=== PATIENT | male | born 1945 | race Caucasian/White ===

== ENCOUNTER 2024-09-27 09:50 | Outpatient (REF) | payer OTHER, SELFPAY ==
[2024-09-27 14:38] LABS: Appearance Urine Clear; Color Urine Yellow; Glucose Urine UA Negative (Negative); Leukocyte Esterase Urine Moderate (2+) (Negative); Nitrite Urine Negative (Negative); PH 6.5 (5.0-9.0); UMIC TRIGGER UA YES; Urine Blood Negative (Negative); Urine Ketones Negative (Negative); Urine Protein Negative (Neg-Trace)
[2024-09-27 14:41] LABS: Bacteria Urine 4+ (None Seen); Hyaline Casts Urine 0-2 /LPF (0-2); RBC Urine 0-2 /HPF (0-2); Squamous Epithelial Cell Urine 0-2 /HPF (0-2); WBC Urine 21-50 /HPF (0-5)
[2024-09-27 21:41] LABS: Creatinine Urine 73.66 mg/dL; Microalbumin Urine < 5.0 mg/L
== END 2024-09-27 09:51 | disposition home or self-care (01) ==
LOC: HO.LAB 09:50
PROVIDERS: PCP Family Medicine; Visit Provider Family Medicine
DX: Z00.00 Encounter for general adult medical examination without abnormal findings (principal); R30.0 Dysuria; R01.1 Cardiac murmur, unspecified; I10 Essential (primary) hypertension
CPT/HCPCS: 81001; 82570; 87086; 87088; 87186; 96127

== ENCOUNTER 2024-09-27 09:50 | Outpatient (AMB) | payer OTHER, SELFPAY ==
--- NOTE | 2024-09-27 10:04 | MHC.PC.OV ---
Vital Signs 09/27/24 10:14 Height 5 ft 5 in Weight 136 lb 4 oz BMI 22.7 BP 130/80 Blood Pressure Location Lt brachial Position Sitting Respiration 14 Pulse 78 Pulse Source Pulse Oximeter Temp 97.5 F Temp Source Oral Pulse Oximetry (%) 93 Oxygen Delivery Method Room Air Intake Visit Reasons: C[employer] P[employer]AT establish care - see comments Intake Note: patient is scheduled to establish care with pcp. patient states he is having burning sensation while urinating Photo Mask Cleaner Required: No Allergies azithromycin Allergy (Intermediate, Verified 09/27/24 10:09) Hives Medication List - Last Reconciled 09/27/24 by Isaak Grider MD losartan-hydrochlorothiazide 100-12.5 mg 1 tab PO DAILY Tobacco use date assessed: 09/27/24 Fall risk assessment: No Falls in past year Last assessed Fall Risk: 09/27/24 Dental Screening Dental Screen Date: 09/27/24 Did you have a dental visit in the last 12 months?: Yes Did you have a dental problem in the last 6 months where you did not have access to dental care?: No Was dental information given to patient?: Patient has dentist HPI [employer] establish care - see comments HPI Details New Patient? ?? Prior PCP:? Dr Roberto Last office visit/CPE:? CPE 6 mos ago Acute issue(s):? Dysuria Needs no further colonoscopies. ?? PMHx:? HTN SurgHx:? Colonoscpy Mar 2024, No surgeries SocHx: Nonsmoker. EtOH: about 2 beers a week. No Drugs PFSH Social History Housing: House Patient Tobacco Use Status: Never used Tobacco e-Cigarette/Vaping Use: Never Used Second Hand Smoke Exposure: No service: Yes Current occupational status: retired Cognitive needs: No Hearing needs: No Vision needs: No Questionnaire PHQ-9 Over the last 2 weeks, how often have you been bothered by any of the following problems? 1. Little interest or pleasure in doing things: not at all 2. Feeling down, depressed, or hopeless: not at all 3. Trouble falling or staying asleep, or sleeping too much: not at all 4. Feeling tired or having little energy: not at all 5. Poor appetite or overeating: not at all 6. Feeling bad about yourself - or that you are a failure or have let yourself or your family down: not at all 7. Trouble concentrating on things, such as reading the newspaper or watching television: not at all 8. Moving or speaking so slowly that other people could have noticed. Or the opposite - being so fidgety or restless that you have been moving around a lot more than usual: not at all 9. Thoughts that you would be better off or of hurting yourself in some way: not at all Total score: 0 Depression Screening Interpretation: Negative Depression Screening Done: Yes 11348 - PHQ-9 Billing: Yes Source: Developed by Drs. Rg Herrera, Stefani Forte, Pankaj Vela and colleagues, with an educational bright from [employer]. Thrive Questionnaire Date Thrive assessed: 09/24/24 I am a: Patient What is your living situation today?: I have a steady place to live Within the past 12 months, did the food you bought not last and you didn't have the money to get more?: Never true Within the past 12 months, did you worry whether your food would run out before you got money to buy more?: Never true Do you have trouble paying for medicines?: No Do you have trouble getting transportation to medical appointments?: No Do you have trouble paying your heating and electricity bill?: No Do you have trouble taking care of your child, family member or friend?: No Do you have trouble with day-to-day activities such as bathing, preparing meals, shopping, managing finances, etc.?: No Are you currently unemployed and looking for a job?: No Are you interested in more education?: No Please select the resources that you would like help with: None Currently or been in a relationship where the following occur: No concerns reported THRIVE Score: 0 AUDIT C Alcohol Use Questionnaire (AUDIT-C) 1. How often do you have a drink containing alcohol?: 2-4 times a month 2. How many drinks containing alcohol do you have on a typical day when you are drinking?: 1 or 2 3. How often do you have six or more drinks on one occasion?: Never Total Score: 2 ADDI-7 AMB Questionnaire ADDI-7 Date ADDI - 7 assessed: 09/27/24 Feeling nervous, anxious, or on edge: 0 = Not at all Not being able to stop or control worryin = Not at all Worrying too much about different things: 0 = Not at all Trouble relaxin = Not at all Being so restless that it is hard to sit still: 0 = Not at all Becoming easily annoyed or irritable: 0 = Not at all Feeling afraid as if something awful might happen: 0 = Not at all Total ADDI-7 score (0-4 normal; 5-9 mild; 10-14 moderate; 15-21 severe): 0 Source: Developed by Drs. Rg Herrera, Stefani Forte, Pankaj Vela and colleagues, with an educational bright from [employer]. ADDI-7 Assessment Billing ADDI-7 Assessment Tool: ADDI-7 Assessment 66208 Review of Systems Const Denies chills, Denies fatigue, Denies fever(s), Denies headache(s) and Denies weakness ENT Denies dizziness and Denies headache(s) Card Denies chest pain, Denies lightheadedness, Denies dyspnea and Denies other (Palpitations) Resp Denies cough, Denies dyspnea, Denies wheezing and Denies other ( shortness of breath) Musc Denies numbness and Denies tingling Neuro Denies dizziness, Denies headache(s), Denies numbness, Denies tingling, Denies paresthesias and Denies weakness Psych Denies anxiety and Denies depression Endo Denies fatigue Aller/Immun Denies wheezing Physical exam (Primary Care) Vital Signs: Last Vital Signs Temp 97.5 F 09/27/24 10:14 Pulse 78 09/27/24 10:14 Resp 14 09/27/24 10:14 BP 130/80 09/27/24 10:14 Pulse Ox 93 09/27/24 10:14 Oxygen Delivery Method Room Air 09/27/24 10:14 BMI result Body Mass Index 22.7 Tobacco/Smoking Status: Tobacco use Status Tobacco use date assessed 09/27/24 09/27/24 10:21 Patient Tobacco Use Status Never used Tobacco 09/27/24 10:21 e-Cigarette/Vaping Use Never Used 09/27/24 10:21 PHQ-9: PHQ-9 Score PHQ-9: Total score 0 09/27/24 10:30 Depression Screening Interpretation: Negative Thrive Assessment: Date of Thrive Assessment Date Thrive assessed 09/24/24 09/27/24 10:21 Currently or been in a relationship where the following occur: No concerns reported Const General: no acute distress and well developed Nutritional Appearance: well nourished Orientation/consciousness: patient oriented x3 HENMT Head: Yes normocephalic and Yes atraumatic Eyes General: appearance normal, both eyes and all related structures Pupils: Equal, round and reactive pupils present EOM: EOMs intact bilaterally Resp Effort & Inspection: normal respiratory effort Auscultation: clear to auscultation bilaterally Cardio Rate: regular rate Rhythm: regular rhythm Heart sounds: S1 normal heart sound present, S2 normal heart sound present, no gallops, Murmur heart sound present and no rubs Neuro General: patient oriented x3 and gait normal Cranial nerves: Yes Equal, round and reactive pupils present Psych Affect: normal affect Coding Level of Care Code New Pt Level 3 (34658) Diagnoses Hypertension I10 Dysuria R30.0 Heart murmur R01.1 Screening for colon cancer Z12.11 Laboratory exam ordered as part of routine general medical examination Z00.00 Additional Codes ADDI-7 Assessment Billing - ADDI-7 Assessment Tool: ADDI-7 Assessment 64653 ([id number]) PHQ-9 - 32006 - PHQ-9 Billing: Yes ([id number]) Assessment & Plan Assessment & Plan (1) Hypertension: Code(s): I10 - Essential (primary) hypertension Category: Medical Plan: Blood?pressure?is?controlled.??Goal?is?less?than?140/90 Continue?current?medication Continue?exercise?and?healthy?diet (2) Dysuria: Code(s): R30.0 - Dysuria Category: Medical Plan: Patient?notes?dysuria?and urine?dip?shows?leukocytes Will?treat?empirically.??Start?Bactrim?DS?twice?daily?times?10?days Sending?urine?for?culture?and?sensitivities?as?well Finish?all?antibiotic?unless?there?is?a?problem.??Call?for?any?problems. (3) Heart murmur: Code(s): R01.1 - Cardiac murmur, unspecified Category: Medical Plan: Patient?has?known,?lifelong?benign?murmur. (4) Screening for colon cancer: Code(s): Z12.11 - Encounter for screening for malignant neoplasm of colon Category: Medical Plan: Patient?had?colonoscopy?last?March This?was?normal?and?he?was?told?he?does?not?any?further?colonoscopies. (5) Laboratory exam ordered as part of routine general medical examination: Code(s): Z00.00 - Encounter for general adult medical examination without abnormal findings Category: Medical Plan: Check labs Orders: Orders Comprehensive [place]. Panel Fast Today Z00.00 - Encounter for general adult medical examination without abnormal findings UA and rflx microscopic Today R30.0 - Dysuria Urine Culture Today R30.0 - Dysuria Complete Blood Count Auto Diff Today Z00.00 - Encounter for general adult medical examination without abnormal findings Microalbumin, Random (w Creat) Today I10 - Essential (primary) hypertension Prostate Specific Antigen Scr Today Z12.5 - Encounter for screening for malignant neoplasm of prostate Lipid Panel Today Z00.00 - Encounter for general adult medical examination without abnormal findings TSH reflex Free T4 Today Z00.00 - Encounter for general adult medical examination without abnormal findings Medications: New sulfamethoxazole-trimethoprim 800-160 mg (Bactrim DS) 1 tab PO Q12H 10 days 20 tabs 0RF
[2024-09-27 10:14] VITALS: BP 130/80; PULSE 78; RESP 14; TEMP 36.4; O2SAT 93; BMI 22.7
== END 2024-09-27 10:53 | disposition home or self-care (01) ==
LOC: HO.HMCFM 09:50
PROVIDERS: PCP Family Medicine; Visit Provider Family Medicine
DX: I10 Essential (primary) hypertension (principal); R30.0 Dysuria; R01.1 Cardiac murmur, unspecified; Z12.11 Encounter for screening for malignant neoplasm of colon; Z00.00 Encounter for general adult medical examination without abnormal findings

== ENCOUNTER 2024-09-28 09:23 | Outpatient (REF) | payer OTHER, SELFPAY ==
[2024-09-28 11:26] LABS: MANUAL DIFF FLAG NO
[2024-09-28 11:58] LABS: Basophils Percent Auto 0.6 % (0-2); Eosinophils Absolute Auto 0.4 X10*3/uL (0.0-0.4); Eosinophils Percent Auto 6.9 % (0-4); Hematocrit 42.3 % (42.0-52.0); Hemoglobin 14.1 g/dl (14.0-18.0); Imm Gran Abs Auto 0.01 X10*3/uL (0.00-0.03); Imm Gran Pct Auto 0.2 % (0.0-0.4); Lymphocytes Absolute Auto 1.2 X10*3/uL (1.2-4.9); Lymphocytes Percent Auto 22.2 % (20-40); Mean Corpuscular HGB Conc 33.3 g/dl (31.0-36.0); Mean Corpuscular Hemoglobin 30.6 pg (27.0-33.0); Mean Corpuscular Volume 91.8 fL (80.0-98.0); Mean Platelet Volume 11.5 fL (9.4-12.4); Monocytes Absolute Auto 0.5 X10*3/uL (0.1-1.2); Monocytes Percent Auto 8.6 % (2-11); Neutrophils Absolute Auto 3.2 x10*3/uL (2.0-8.3); Neutrophils Percent Auto 61.5 % (45-73); Platelet Count 185 X10*3/uL (160-400); Red Blood Count 4.61 X10*6/uL (4.60-5.80); Red Cell Distribution Width 13.2 % (11.0-16.0); White Blood Count 5.2 X10*3/uL (4.8-10.8)
[2024-09-28 12:24] LABS: Alanine Aminotransferase 20 U/L (0-40); Albumin Level 4.1 g/dL (3.5-5.0); Alkaline Phosphatase 80 U/L (39-117); Anion Gap 13 (12-20); Aspartate Amino Transferase 27 U/L (5-37); Bilirubin Total 0.6 mg/dL (0.0-1.0); Blood Urea Nitrogen 23 mg/dL (9-16); Calcium 9.6 mg/dL (8.4-10.2); Carbon Dioxide 24 mmol/L (22-29); Chloride 106 mmol/L (96-108); Cholesterol 192 mg/dL (<200); Estimated Glomerular Filt Rate 50; Glucose Fasting 89 mg/dL (60-99); HDL Cholesterol 51 mg/dL (>40); LDL Cholesterol Calculated 123 mg/dL (<100); Potassium 4.1 mmol/L (3.3-5.1); Sodium 139 mmol/L (135-145); Total Protein 7.5 g/dL (6.5-8.0); Triglycerides 91 mg/dL (<150)
[2024-09-28 12:32] LABS: TSH reflex Free T4 1.91 uIU/mL (0.32-4.0)
[2024-09-28 12:37] LABS: Prostate Specific Antigen Scr 1.45 ng/mL (<0.05-4.0)
== END 2024-09-28 09:24 | disposition home or self-care (01) ==
LOC: HO.WFDLDS 09:23
PROVIDERS: Visit Provider Family Medicine
DX: Z00.00 Encounter for general adult medical examination without abnormal findings (principal); Z12.5 Encounter for screening for malignant neoplasm of prostate; Z13.29 Encounter for screening for other suspected endocrine disorder; Z13.0 Encounter for screening for diseases of the blood and blood-forming organs and certain disorders involving the immune mechanism; Z13.220 Encounter for screening for lipoid disorders
CPT/HCPCS: 36415; 80053; 80061; 84153; 84443; 85025

== ENCOUNTER 2024-10-06 09:02 | Outpatient (AMB) | payer OTHER, SELFPAY ==
--- NOTE | 2024-10-06 09:18 | MHC.PC.OV ---
Vital Signs 10/06/24 09:24 Height 5 ft 5 in Weight 133 lb 2 oz BMI 22.2 BP 130/64 Blood Pressure Location Lt brachial Position Sitting Respiration 14 Pulse 84 Pulse Source Pulse Oximeter Temp 99.6 F Temp Source Oral Pulse Oximetry (%) 100 Oxygen Delivery Method Room Air Intake Visit Reasons: Feeling dizzy, rash and hard time breathing Intake Note: patient came into visit today to be seen for rash on front,back,hands in some area Per-Nurse ['sinuses feel inflamed,' denies throat and chest tightness; abdomen/arms covered in red spots/rash] Bowl Topper Required: No Allergies azithromycin Allergy (Intermediate, Verified 09/27/24 10:09) Hives sulfamethoxazole [From Sulfamethoxazole-Trimethoprim] Adverse Reaction (Severe, Verified 10/06/24 09:23) rash trimethoprim [From Sulfamethoxazole-Trimethoprim] Adverse Reaction (Severe, Verified 10/06/24 09:23) rash Tobacco use date assessed: 09/27/24 Dental Screening Dental Screen Date: 09/27/24 HPI Feeling dizzy, rash and hard time breathing HPI Details Pt presents today with complaints of a rash. He also has complaints of dizziness, difficulty breathing. Recently treated with Bactrim for dysuria. Pt notes rash on abdomen/arms. He reports sinuses feel inflamed . He denies throat and chest tightness. [facility] Social History Housing: House Patient Tobacco Use Status: Never used Tobacco e-Cigarette/Vaping Use: Never Used Second Hand Smoke Exposure: No service: Yes Current occupational status: retired Cognitive needs: No Hearing needs: No Vision needs: No Questionnaire Thrive Questionnaire Date Thrive assessed: 09/24/24 ADDI-7 AMB Questionnaire ADDI-7 Date ADDI - 7 assessed: 09/27/24 Source: Developed by Drs. Rg Herrera, Stefani Forte, Pankaj Vela and colleagues, with an educational bright from [employer]. Review of Systems Const Denies chills, Denies fatigue, Denies fever(s), Denies headache(s) and Denies weakness ENT Denies dizziness and Denies headache(s) Card Denies dyspnea Resp Denies cough, Denies dyspnea, Denies wheezing and Denies other (shortness of breath) Musc Denies numbness and Denies tingling Neuro Denies dizziness, Denies headache(s), Denies numbness, Denies tingling and Denies weakness Psych Denies anxiety and Denies depression Endo Denies fatigue Aller/Immun Denies wheezing Physical exam (Primary Care) Vital Signs: Last Vital Signs Temp 99.6 F 10/06/24 09:24 Pulse 84 10/06/24 09:24 Resp 14 10/06/24 09:24 BP 130/64 10/06/24 09:24 Pulse Ox 100 10/06/24 09:24 Oxygen Delivery Method Room Air 10/06/24 09:24 BMI result Body Mass Index 22.2 Tobacco/Smoking Status: Tobacco use Status Tobacco use date assessed 09/27/24 10/06/24 09:19 Patient Tobacco Use Status Never used Tobacco 10/06/24 09:19 e-Cigarette/Vaping Use Never Used 10/06/24 09:19 Thrive Assessment: Date of Thrive Assessment Date Thrive assessed 09/24/24 10/06/24 09:19 Const General: well developed; No acute distress Nutritional Appearance: well nourished Orientation/consciousness: patient oriented x3 [facility]: Yes normocephalic and Yes atraumatic Eyes General: appearance normal, both eyes and all related structures Pupils: Equal, round and reactive pupils present EOM: EOMs intact bilaterally Resp Effort & Inspection: normal respiratory effort Auscultation: clear to auscultation bilaterally Cardio Rate: regular rate Rhythm: regular rhythm Heart sounds: S1 normal heart sound present, S2 normal heart sound present, no gallops, no murmurs and no rubs Neuro General: patient oriented x3 and gait normal Cranial nerves: Yes Equal, round and reactive pupils present Psych Affect: normal affect Coding Level of Care Code Est Pt Level 4 (40171) Diagnoses Allergic reaction T78.40XA Rash R21 Dysuria R30.0 Assessment & Plan Assessment & Plan (1) Allergic reaction: Code(s): T78.40XA - Allergy, unspecified, initial encounter Category: Medical (2) Rash: Code(s): R21 - Rash and other nonspecific skin eruption Category: Medical (3) Dysuria: Code(s): R30.0 - Dysuria Category: Medical Plan Allergic?reaction?with?extensive?rash?on?arms?and?torso Lungs?are?clear-no?wheezing Tongue?and?throat?without?swelling Patient?has?rather?clear?allergic?reaction?to?Bactrim.??He?discontinued?it?yesterday. Will?give?him?prednisone?and?Benadryl Wear?loose-fitting?clothing?and?cool?showers Call?or?return?to?office?if?worsening?or?not?improving Patient?completed?a?seven-day?course?for?Bactrim?for?dysuria?and?culture?had?shown?positive?UTI?sensitive?to?Bactrim. Can?discontinue?antibiotic Medications: New prednisone 40 mg (2 x 20 mg) PO DAILY 5 days 10 tabs 0RF diphenhydramine HCl (Benadryl Allergy) 50 mg (2 x 25 mg) PO TID 3 days PRN 18 tabs 0RF allergic reaction Discontinued sulfamethoxazole-trimethoprim 800-160 mg (Bactrim DS) Discontinued Reason: Doctor's Order 1 tab PO Q12H 10 days 20 tabs 0RF
[2024-10-06 09:24] VITALS: BP 130/64; PULSE 84; RESP 14; TEMP 37.6; O2SAT 100; BMI 22.2
== END 2024-10-06 09:48 | disposition home or self-care (01) ==
PROVIDERS: PCP Family Medicine; Visit Provider Family Medicine
DX: T78.40XA Allergy, unspecified, initial encounter (principal); R21 Rash and other nonspecific skin eruption; R30.0 Dysuria

== ENCOUNTER → 2024-10-06 09:02 | Outpatient (BNVA) | payer OTHER, SELFPAY | PROVIDERS: PCP Family Medicine; Visit Provider Family Medicine ==

== ENCOUNTER 2024-11-22 13:31 | Outpatient (AMB) | payer OTHER, SELFPAY ==
--- NOTE | 2024-11-22 13:35 | A.OFFPC_ITS ---
Vital Signs 11/22/24 13:41 11/22/24 14:22 Height 5 ft 5 in Weight 137 lb BMI 22.8 BP 140/76 H 138/72 Blood Pressure Location Rt brachial Rt radial Position Sitting Respiration 13 Pulse 68 Pulse Source Pulse Oximeter Temp 97.2 F Temp Source Oral Pulse Oximetry (%) 99 Oxygen Delivery Method Room Air Intake Visit Reasons: Possible UTI /Burning sensation lower abd pain Intake Note: Patient c/o burning when urinating Lab Rep Required: No Allergies azithromycin Allergy (Intermediate, Verified 11/22/24 14:13) Hives sulfamethoxazole (From Sulfamethoxazole-Trimethoprim) Adverse Reaction (Severe, Verified 11/22/24 14:13) rash trimethoprim (From Sulfamethoxazole-Trimethoprim) Adverse Reaction (Severe, Verified 11/22/24 14:13) rash Medication List - Last Reconciled 11/22/24 by ALESSANDRA Wallace-BC diphenhydramine HCl (Benadryl Allergy) 50 mg (2 x 25 mg) PO TID PRN 3 days losartan-hydrochlorothiazide 100-12.5 mg 1 tab PO DAILY prednisone 40 mg (2 x 20 mg) PO DAILY 5 days Tobacco use date assessed: 11/22/24 Fall risk assessment: No Falls in past year Last assessed Fall Risk: 11/22/24 Dental Screening Dental Screen Date: 11/22/24 Did you have a dental visit in the last 12 months?: Yes Did you have a dental problem in the last 6 months where you did not have access to dental care?: No Was dental information given to patient?: Patient has dentist HPI HPI Comments History of Present Illness Details History of Present Illness - The patient is a 78-year-old male with CKD3 and HTN presenting with concern for urinary tract infection. - Burning sensation during urination not ed. c/o mild intermittent LLQ that is present only before urination - Treated previously with Bactrim (September 10), discontinued due to allergic reaction (hives). - No fever, chills, nausea, vomiting, he maturia, or discharge. 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 BP stable. Review of Systems - Genitourinary: Reports burning sensati on during urination; denies hematuria or penile discharge. - Constitutional: Denies fever or chills . - Gastrointestinal: Denies nausea or vom iting. - Integumentary: Reports hives with prev ious medication. - Appetite: Reports decreased appetite. - Oral: Reports burning sensation in the tongue. - Cardiovascular: Denies recent issues. Physical Exam General: Well developed, well nourished, in no acute distress. Appears stated age. Head: Normocephalic, atraumatic. Eyes: Pupils are equal, round and reactive to light and accommodation. Conjunctivae are clear. Vision grossly normal. Abdomen: Bowel sounds present in all quadrants. The abdomen is soft, nontender, with no masses or organomegaly noted. No hernias are noted. No CVAT bilat Results: Pending Discussion Notes I discussed the patient's urinary symptoms and history of allergic reaction to previous antibiotic treatment. I explained the importance of determining the causative organism through urinalysis to provide appropriate antibiotic therapy. We reviewed the allergy to Bactrim and Zpak and discussed alternatives, excluding any that previously caused adverse reactions. I assured the patient that results from the initial urinalysis would be available quickly, and an empirical antibiotic plan would be put in place depending on initial findings. I informed the patient that adjustments might be necessary depending on further lab specialization results. I advised follow-up through the patient portal for lab results and further instructions. Assessment and Plan 1. Urinary Tract Infection - Pending urinalysis for bacterial ident ification. - Antibiotic choice to consider allergie s and sensitivities. - Continue lifestyle changes and increas ed hydration. 2. Hypertension - Monitor blood pressure at home. - Continue Losartan and Hydrochlorothiaz ayah therapy. 3. CKD 3 Labs 09/2024 reviewed, avoid n ephrotoxic agents. Consider renal dosing for meds PRN Patient Instructions - Continue to drink plenty of water. - Avoid caffeine, alcohol, and spicy regi ds. - Use the patient portal to check for ur inalysis results. - Monitor your blood pressure at home. - Return if symptoms worsen or new sympt oms develop. Consent Patient was informed and verbally consented to the use of an ambient scribe for clinic note documentation during this visit. Total time spent caring for the patient today was 30 minutes. This includes time spent before the visit reviewing the chart, time spent during the visit, and time spent after the visit on documentation, reviewing laboratory results, diagnostic imaging, medications, performing a medically necessary evaluation, counseling on diagnoses, care coordination, ordering appropriate tests, ordering appropriate medications, review of tests performed by other providers, reporting test results with the patient, communication with other healthcare providers. [facility] Social History Housing: House Patient Tobacco Use Status: Never used Tobacco e-Cigarette/Vaping Use: Never Used Second Hand Smoke Exposure: No service: Yes Current occupational status: retired Cognitive needs: No Hearing needs: No Vision needs: No Questionnaire PHQ-9 Over the last 2 weeks, how often have you been bothered by any of the following problems? 1. Little interest or pleasure in doing things: not at all 2. Feeling down, depressed, or hopeless: not at all 3. Trouble falling or staying asleep, or sleeping too much: not at all 4. Feeling tired or having little energy: not at all 5. Poor appetite or overeating: not at all 6. Feeling bad about yourself - or that you are a failure or have let yourself or your family down: not at all 7. Trouble concentrating on things, such as reading the newspaper or watching television: not at all 8. Moving or speaking so slowly that other people could have noticed. Or the opposite - being so fidgety or restless that you have been moving around a lot more than usual: not at all 9. Thoughts that you would be better off or of hurting yourself in some way: not at all Total score: 0 Depression Screening Interpretation: Negative Depression Screening Done: Yes 76161 - PHQ-9 Billing: Yes Source: Developed by Drs. Rg Herrera, Stefani Forte, Pankaj Vela and colleagues, with an educational bright from [employer]. Thrive Questionnaire Date Thrive assessed: 11/22/24 I am a: Patient What is your living situation today?: I have a steady place to live Within the past 12 months, did the food you bought not last and you didn't have the money to get more?: Never true Within the past 12 months, did you worry whether your food would run out before you got money to buy more?: Never true Do you have trouble paying for medicines?: No Do you have trouble getting transportation to medical appointments?: No Do you have trouble paying your heating and electricity bill?: No Do you have trouble taking care of your child, family member or friend?: No Do you have trouble with day-to-day activities such as bathing, preparing meals, shopping, managing finances, etc.?: No Are you currently unemployed and looking for a job?: No Are you interested in more education?: No Please select the resources that you would like help with: None Currently or been in a relationship where the following occur: No concerns reported THRIVE Score: 0 AUDIT C Alcohol Use Questionnaire (AUDIT-C) 1. How often do you have a drink containing alcohol?: Never 3. How often do you have six or more drinks on one occasion?: Never Total Score: 0 Score Reviewed/Action Taken: Yes ADDI-7 AMB Questionnaire ADDI-7 Date ADDI - 7 assessed: 11/22/24 Feeling nervous, anxious, or on edge: 0 = Not at all Not being able to stop or control worryin = Not at all Worrying too much about different things: 0 = Not at all Trouble relaxin = Not at all Being so restless that it is hard to sit still: 0 = Not at all Becoming easily annoyed or irritable: 0 = Not at all Feeling afraid as if something awful might happen: 0 = Not at all Total ADDI-7 score (0-4 normal; 5-9 mild; 10-14 moderate; 15-21 severe): 0 Source: Developed by Drs. Rg Herrera, Stefani Forte, Pankaj Vela and colleagues, with an educational bright from [employer]. ADDI-7 Assessment Billing ADDI-7 Assessment Tool: ADDI-7 Assessment 07777 Physical exam (Primary Care) Vital Signs: Last Vital Signs Temp 97.2 F 11/22/24 13:41 Pulse 68 11/22/24 13:41 Resp 13 11/22/24 13:41 BP 140/76 H 11/22/24 13:41 Pulse Ox 99 11/22/24 13:41 Oxygen Delivery Method Room Air 11/22/24 13:41 BMI result Body Mass Index 22.8 Tobacco/Smoking Status: Tobacco use Status Tobacco use date assessed 11/22/24 11/22/24 13:36 Patient Tobacco Use Status Never used Tobacco 11/22/24 13:36 e-Cigarette/Vaping Use Never Used 11/22/24 13:36 PHQ-9: PHQ-9 Score PHQ-9: Total score 0 11/22/24 13:36 Depression Screening Interpretation: Negative Thrive Assessment: Date of Thrive Assessment Date Thrive assessed 11/22/24 11/22/24 13:36 Currently or been in a relationship where the following occur: No concerns reported Coding Level of Care Code Est Pt Level 4 (29451) Complex EM visit Add On G2211 Diagnoses Stage 3a chronic kidney disease N18.31 Chronic kidney disease stage 3 subtype: stage 3a (GFR 45-59) Dysuria R30.0 Primary hypertension I10 Hypertension type: primary hypertension Additional Codes ADDI-7 Assessment Billing - ADDI-7 Assessment Tool: ADDI-7 Assessment 20317 ([id number]) PHQ-9 - 91415 - PHQ-9 Billing: Yes ([id number]) Assessment & Plan Assessment & Plan (1) CKD (chronic kidney disease) stage 3, GFR 30-59 ml/min: Code(s): N18.30 - Chronic kidney disease, stage 3 unspecified Category: Medical Qualifiers: Chronic kidney disease stage 3 subtype: stage 3a (GFR 45-59) Qualified Code(s): N18.31 - Chronic kidney disease, stage 3a (2) Dysuria: Code(s): R30.0 - Dysuria Category: Medical (3) Hypertension: Code(s): I10 - Essential (primary) hypertension Category: Medical Qualifiers: Hypertension type: primary hypertension Qualified Code(s): I10 - Essential (primary) hypertension Plan . Orders: Orders UA CC w/rflx Micro + Cult Today R30.0 - Dysuria Medications: Discontinued prednisone Discontinued Reason: Patient Completed Course 40 mg (2 x 20 mg) PO DAILY 5 days 10 tabs 0RF diphenhydramine HCl (Benadryl Allergy) Discontinued Reason: Patient Completed Course 50 mg (2 x 25 mg) PO TID 3 days PRN 18 tabs 0RF allergic reaction
[2024-11-22 13:41] VITALS: BP 140/76; PULSE 68; RESP 13; TEMP 36.2; O2SAT 99; BMI 22.8
[2024-11-22 14:22] VITALS: BP 138/72
== END 2024-11-22 14:32 | disposition home or self-care (01) ==
LOC: HO.HMCFM 13:32
PROVIDERS: PCP Family Medicine; Visit Provider Nurse Practitioner Family
DX: N18.31 Chronic kidney disease, stage 3a (principal); R30.0 Dysuria; I10 Essential (primary) hypertension

== ENCOUNTER 2024-11-22 14:21 | Outpatient (REF) | payer OTHER, SELFPAY ==
[2024-11-22 18:04] LABS: Appearance Urine Clear; Glucose Urine UA Negative (Negative); PH 6.0 (5.0-9.0); Specific Gravity - Urine 1.015 (1.005-1.025)
== END 2024-11-22 14:22 | disposition home or self-care (01) ==
LOC: HO.LAB 14:21
PROVIDERS: Visit Provider Nurse Practitioner Family
DX: R30.0 Dysuria (principal); I12.9 Hypertensive chronic kidney disease with stage 1 through stage 4 chronic kidney disease, or unspecified chronic kidney disease; N18.30 Chronic kidney disease, stage 3 unspecified; Z87.440 Personal history of urinary (tract) infections
CPT/HCPCS: 81003; 96127

== ENCOUNTER 2024-11-23 13:24 | Outpatient (REF) | payer OTHER, SELFPAY ==
[2024-11-23 14:54] LABS: Hematocrit 37.8 % (42.0-52.0); Hemoglobin 13.0 g/dl (14.0-18.0); Mean Corpuscular HGB Conc 34.4 g/dl (31.0-36.0); Mean Corpuscular Hemoglobin 30.2 pg (27.0-33.0); Mean Corpuscular Volume 87.7 fL (80.0-98.0); NRBC Abs Auto 0.000 X10*3/uL (0.0-0.012); NRBC Pct Auto 0.0 /100WBC (0.0-0.2); Platelet Count 205 X10*3/uL (160-400); Red Blood Count 4.31 X10*6/uL (4.60-5.80); White Blood Count 5.4 X10*3/uL (4.8-10.8)
[2024-11-23 15:33] LABS: Blood Urea Nitrogen 22 mg/dL (9-16); Estimated Glomerular Filt Rate 51
== END 2024-11-23 13:25 | disposition home or self-care (01) ==
LOC: HO.WFDLDS 13:24
PROVIDERS: Visit Provider Nurse Practitioner Family
DX: R30.0 Dysuria (principal); R10.30 Lower abdominal pain, unspecified; Z12.5 Encounter for screening for malignant neoplasm of prostate
CPT/HCPCS: 36415; 82565; 84153; 84520; 85027; 85652

== ENCOUNTER 2025-01-25 13:31 | Outpatient (AMB) | payer OTHER, SELFPAY ==
--- NOTE | 2025-01-25 13:39 | A.OFFPC_ITS ---
Vital Signs 01/25/25 13:44 Height 5 ft 5 in Weight 138 lb 8 oz BMI 23.0 BP 140/60 H Blood Pressure Location Rt brachial Position Sitting Respiration 14 Pulse 91 Pulse Source Pulse Oximeter Temp 98.2 F Temp Source Temporal Artery Scan Pulse Oximetry (%) 96 Oxygen Delivery Method Room Air Intake Visit Reasons: CPE with f/u labs and health maint.see comments Intake Note: Keron presents in the office today for his annual physical and a follow up to his labs. Allergies azithromycin Allergy (Intermediate, Verified 01/25/25 13:42) Hives sulfamethoxazole (From Sulfamethoxazole-Trimethoprim) Adverse Reaction (Severe, Verified 01/25/25 13:42) rash trimethoprim (From Sulfamethoxazole-Trimethoprim) Adverse Reaction (Severe, Verified 01/25/25 13:42) rash Tobacco use date assessed: 01/25/25 Fall risk assessment: No Falls in past year Last assessed Fall Risk: 01/25/25 Dental Screening Dental Screen Date: 01/25/25 Did you have a dental visit in the last 12 months?: Yes Did you have a dental problem in the last 6 months where you did not have access to dental care?: No Was dental information given to patient?: Patient has dentist HPI CPE with f/u labs and health maint.see comments HPI Details 79 y/o male presents for a CPE with f/u labs and health maint. Labs drawn 11/23/24. Reviewed labs with pt. Mild anemia. Lipid panel drawn 09/28/24. Triglycerides 91. TC 192. LDL 123. HDL 51. PSA level was fine. BP today 140/60, 91p. He is on losartan-hydrochlorothiazide 100-12.5mg daily. Complaints of LLQ pain. HPI Comments History of Present Illness Details Documentation assistance for Isaak Grider MD, was provided by Wilver Hudson,? Hogshead Mat Assembler on at 2:18 PM EST. I, Dr. Grider, have read, observed, and verified documentation. ? PFSH Social History Housing: House Patient Tobacco Use Status: Never used Tobacco e-Cigarette/Vaping Use: Never Used Second Hand Smoke Exposure: No service: Yes Current occupational status: retired Cognitive needs: No Hearing needs: No Vision needs: No Questionnaire Thrive Questionnaire Date Thrive assessed: 11/22/24 I am a: Patient What is your living situation today?: I have a steady place to live Within the past 12 months, did the food you bought not last and you didn't have the money to get more?: Never true Within the past 12 months, did you worry whether your food would run out before you got money to buy more?: Never true Do you have trouble paying for medicines?: No Do you have trouble getting transportation to medical appointments?: No Do you have trouble paying your heating and electricity bill?: No Do you have trouble taking care of your child, family member or friend?: No Do you have trouble with day-to-day activities such as bathing, preparing meals, shopping, managing finances, etc.?: No Are you currently unemployed and looking for a job?: No Are you interested in more education?: No Please select the resources that you would like help with: None Currently or been in a relationship where the following occur: No concerns reported THRIVE Score: 0 ADDI-7 AMB Questionnaire ADDI-7 Date ADDI - 7 assessed: 11/22/24 Source: Developed by Drs. Rg Herrera, Stefani Forte, Pankaj Vela and colleagues, with an educational bright from [employer]. Review of Systems Const Denies chills, Denies fatigue, Denies fever(s), Denies headache(s) and Denies we akness Eyes Denies change in vision ENT Denies dizziness, Denies headache(s), Denies hearing loss, Denies nasal congestion, Denies sinus pain, Denies sinus pressure and Denies sore throat Card Denies chest pain, Denies lightheadedness, Denies dyspnea and Denies other (palpitations) Resp Denies cough, Denies dyspnea and Denies wheezing GI Reports abdominal pain, Denies melena, Denies hematochezia, Denies change in bowel habits, Denies dyspepsia and Denies nausea Denies hematuria and Denies dysuria Musc Denies abnormal gait, Denies myalgias, Denies arthralgias, Denies numbness and Denies tingling Skin/Breast Denies rash, Denies unusual bruising and Denies wounds Neuro Denies abnormal gait, Denies dizziness, Denies headache(s), Denies memory loss, Denies numbness, Denies Sensory deficit (Neuro), Denies tingling and Denies weakness Psych Denies anxiety, Denies depression and Denies memory loss Endo Denies cold intolerance, Denies fatigue, Denies heat intolerance, Denies polydipsia and Denies polyuria Lewis/Lymph Denies easy bleeding and Denies easy bruising Aller/Immun Denies wheezing Physical exam (Primary Care) Vital Signs: Last Vital Signs Temp 98.2 F 01/25/25 13:44 Pulse 91 01/25/25 13:44 Resp 14 01/25/25 13:44 BP 140/60 H 01/25/25 13:44 Pulse Ox 96 01/25/25 13:44 Oxygen Delivery Method Room Air 01/25/25 13:44 BMI result Body Mass Index 0.2 Tobacco/Smoking Status: Tobacco use Status Tobacco use date assessed 01/25/25 01/25/25 13:48 Patient Tobacco Use Status Never used Tobacco 01/25/25 13:41 e-Cigarette/Vaping Use Never Used 01/25/25 13:41 Thrive Assessment: Date of Thrive Assessment Date Thrive assessed 11/22/24 01/25/25 13:41 Currently or been in a relationship where the following occur: No concerns reported Const General: no acute distress, well developed, alert and awake Nutritional Appearance: well nourished Orientation/consciousness: patient oriented x3 HENMT Head: Yes normocephalic and Yes atraumatic Ears: hearing grossly normal bilaterally and TM's normal bilaterally General nose exam: Normal external nose present and Normal nares present Mouth: Normal oral and palatal mucosa present and moist mucous membranes Teeth and gingiva: dentition normal Throat: Yes posterior oropharynx normal Eyes General: appearance normal, both eyes and all related structures Pupils: Equal, round and reactive pupils present and Pupil accommodation reflex normal EOM: EOMs intact bilaterally Neck Neck: Yes normal visual inspection, Yes no lymphadenopathy and Yes trachea midline Thyroid: Thyroid normal Carotids: no bruits Lymphatic: no lymphadenopathy noted Chest Chest palpation & inspection: normal inspection of the chest Resp Effort & Inspection: normal respiratory effort Auscultation: clear to auscultation bilaterally Cardio Rate: regular rate Rhythm: regular rhythm Heart sounds: S1 normal heart sound present, S2 normal heart sound present, no gallops, no murmurs and no rubs Bruits: no abdominal aortic bruits and no carotid bruits GI Other: LLQ pain with slight bulge but no impulse on valsalva Palpation (GI): No Abdominal aortic bruit present, Soft to palpation, nontender, No hepatosplenomegaly present and No Rebound tenderness present Auscultation: normal bowel sounds General: Yes no CVA tenderness Back/Spine/Pelvis Back: no CVA tenderness Cervical Spine: cervical ROM normal and No Cervical spine tenderness Thoracic/Lumbar Spine: thoraco-lumbar ROM normal, No pain with thoraco-lumbar ROM, No thoracic spinal tenderness and No lumbar spinal tenderness Skin Lesions: no lesions Rashes: no rashes Trauma: no lacerations or abrasions Wounds: no wounds Nails: normal Neuro General: patient oriented x3 Cranial nerves: Yes Equal, round and reactive pupils present Cognition (Neuro): normal cognition Gait exam (Neuro): Normal gait present Motor exam (neuro): 5/5 motor strength present throughout Sensory Exam: No Sensory deficit (Neuro) Deep tendon reflexes (DTR's): Right patellar reflex intensity grade: 2+ and Left patellar reflex intensity grade: 2+ Extrem General: Yes normal to inspection and No edema Psych Appearance: grossly normal Affect: normal affect Attitude: cooperative Thought process: Normal thought process present Coding Level of Care Code Tele Est Pt Level 5 (76491) Diagnoses Adult general medical exam Z00.00 Primary hypertension I10 Hypertension type: primary hypertension Screening for colon cancer Z12.11 Dysuria R30.0 Left lower quadrant pain R10.32 Stage 3a chronic kidney disease N18.31 Chronic kidney disease stage 3 subtype: stage 3a (GFR 45-59) Elevated LDL cholesterol level E78.00 Screening for prostate cancer Z12.5 Assessment & Plan Assessment & Plan (1) Adult general medical exam: Code(s): Z00.00 - Encounter for general adult medical examination without abnormal findings Category: Medical Plan: 79-year-old male presents for complete physical exam Encouraged healthy diet with active lifestyle and plenty of exercise (2) Hypertension: Code(s): I10 - Essential (primary) hypertension Category: Medical Qualifiers: Hypertension type: primary hypertension Qualified Code(s): I10 - Essential (primary) hypertension Plan: Blood pressure is running a little too high. Goal is less than 140/90 He is on losartan hydrochlorothiazide and I am increasing the dose today. Will follow-up in a couple of months Patient has CKD stage 3. This has been improving slightly. Will recheck renal function (3) Screening for colon cancer: Code(s): Z12.11 - Encounter for screening for malignant neoplasm of colon Category: Medical Plan: Patient had his last colonoscopy in [place] at age 77 and was told he is done Will request report (4) Dysuria: Code(s): R30.0 - Dysuria Category: Medical Plan: This was treated. He has CT abdomen pelvis 4 urinary symptoms and left lower quadrant bulb with discomfort. (5) Left lower quadrant pain: Code(s): R10.32 - Left lower quadrant pain Category: Medical Plan: Left lower quadrant and left femoral ligament discomfort with slight bulge but no impulse on Valsalva Unclear cause Patient has an appointment for CT abdomen pelvis next month. We will follow-up on the results at his upcoming visit in a couple of months - will call him if action required (6) CKD (chronic kidney disease) stage 3, GFR 30-59 ml/min: Code(s): N18.30 - Chronic kidney disease, stage 3 unspecified Category: Medical Qualifiers: Chronic kidney disease stage 3 subtype: stage 3a (GFR 45-59) Qualified Code(s): N18.31 - Chronic kidney disease, stage 3a Plan: History of CKD stage 3 Stable or slightly improved. Will recheck renal function prior to his next visit. I am increasing hydrochlorothiazide in his antihypertensive combo pill. (7) Elevated LDL cholesterol level: Code(s): E78.00 - Pure hypercholesterolemia, unspecified Category: Medical Plan: Mildly elevated LDL cholesterol Encouraged diet lower in saturated fats and cholesterol Will recheck prior to next visit (8) Screening for prostate cancer: Code(s): Z12.5 - Encounter for screening for malignant neoplasm of prostate Category: Medical Plan: PSA was within normal range We can continue annual screening Plan He will return in 2 months to follow-up hypertension with mild CKD, mild anemia, hyperlipidemia and we will also follow-up on CT abdomen pelvis. Patient has some left lower quadrant discomfort-see a/P Orders: Orders Comprehensive [place]. Panel Fast Today N18.31 - Chronic kidney disease, stage 3a, Z00.00 - Encounter for general adult medical examination without abnormal findings Complete Blood Count Auto Diff Today N18.31 - Chronic kidney disease, stage 3a, Z00.00 - Encounter for general adult medical examination without abnormal findings Lipid Panel Today E78.00 - Pure hypercholesterolemia, unspecified, Z00.00 - Encounter for general adult medical examination without abnormal findings Medications: New losartan-hydrochlorothiazide 100-25 mg 1 tab PO DAILY 90 tabs 3RF 90 days
[2025-01-25 13:44] VITALS: BP 140/60; PULSE 91; RESP 14; TEMP 36.8; O2SAT 96; BMI 23.0
== END 2025-01-25 14:23 | disposition home or self-care (01) ==
LOC: HO.HMCFM 13:32
PROVIDERS: PCP Family Medicine; Visit Provider Family Medicine
DX: Z00.00 Encounter for general adult medical examination without abnormal findings (principal); I12.9 Hypertensive chronic kidney disease with stage 1 through stage 4 chronic kidney disease, or unspecified chronic kidney disease; N18.31 Chronic kidney disease, stage 3a; R30.0 Dysuria; R10.32 Left lower quadrant pain; Z12.11 Encounter for screening for malignant neoplasm of colon; E78.00 Pure hypercholesterolemia, unspecified; Z12.5 Encounter for screening for malignant neoplasm of prostate

== ENCOUNTER 2025-02-18 14:21 | Outpatient (REF) | payer OTHER, SELFPAY ==
--- NOTE | ~2025-02-18 | CT_ITS ---
EXAMINATION: CT ABDOMEN PELVIS WITHOUT IV CONTRAST HISTORY: R10.30 - Lower abdominal pain, unspecified COMPARISON: There are no prior studies available for comparison. TECHNIQUE: CT scan of the abdomen and pelvis was performed without contrast using standard departmental protocol. Coronal and sagittal reformatted images were generated and reviewed. Oral contrast material was not administered per department protocol. This CT exam was performed with one or more of the following dose reduction techniques: automated exposure control, adjustment of the mA and/or kV according to patient size, use of iterative reconstruction technique. DLP: 310 mGy-cm FINDINGS: LOWER CHEST: There is scarring in the right middle lobe and lingula. There is no pleural effusion. CARDIOVASCULATURE: The heart is normal in size. There is no pericardial effusion. LIVER: The liver is normal in size and contour. The liver has an unremarkable unenhanced appearance. GALLBLADDER / BILE DUCTS: The gallbladder is unremarkable. There is no intra or extrahepatic biliary ductal dilatation. SPLEEN: The spleen is normal in size and has an unremarkable unenhanced appearance. PANCREAS: The pancreas has an unremarkable unenhanced appearance. ADRENAL GLANDS: Unremarkable. KIDNEYS/RETROPERITONEUM: No renal or ureteral calculi are identified. There is no hydronephrosis or hydroureter. LYMPH NODES: No retroperitoneal lymphadenopathy is identified in the abdomen or pelvis. VASCULATURE: The abdominal aorta demonstrates atherosclerotic calcification, but is normal in caliber. MESENTERY/PERITONEUM: No free fluid. No masses. There is no free intraperitoneal gas. STOMACH: The stomach is unremarkable. SMALL BOWEL: The small bowel is normal in caliber. COLON: There are scattered diverticula of the sigmoid colon, without evidence of diverticulitis. APPENDIX: Normal. URINARY BLADDER/PELVIC ORGANS: The urinary bladder is collapsed, limiting evaluation. The prostate is mildly enlarged. BONES / SOFT TISSUES: No hernia is identified. There is degenerative disc disease of the spine. CT/CT abdomen pelvis wo IV con IMPRESSION: 1. No evidence of nephrolithiasis or ureteral obstruction. 2. Sigmoid diverticulosis without evidence of diverticulitis. Electronically signed by: Rg Lopez MD 02/18/2025 02:52 PM EDT
== END 2025-02-18 14:22 | disposition home or self-care (01) ==
LOC: HO.CT 14:21
PROVIDERS: PCP Family Medicine; Visit Provider Nurse Practitioner Family
DX: R10.30 Lower abdominal pain, unspecified (principal); R30.0 Dysuria
CPT/HCPCS: 74176

== ENCOUNTER → 2025-02-18 14:27 | Outpatient (BNV) | payer OTHER, SELFPAY | PROVIDERS: PCP Family Medicine; Visit Provider Radiology Diagnostic Radiology | DX: K57.30 Diverticulosis of large intestine without perforation or abscess without bleeding (principal); R10.30 Lower abdominal pain, unspecified | CPT/HCPCS: 74176 ==

== ENCOUNTER 2025-03-02 08:21 | Outpatient (REF) | payer OTHER, SELFPAY ==
[2025-03-02 11:24] LABS: MANUAL DIFF FLAG NO
[2025-03-02 11:29] LABS: Hematocrit 41.3 % (42.0-52.0); Hemoglobin 13.7 g/dl (14.0-18.0); Imm Gran Abs Auto 0.01 X10*3/uL (0.00-0.03); Imm Gran Pct Auto 0.2 % (0.0-0.4); Lymphocytes Absolute Auto 1.4 X10*3/uL (1.2-4.9); Mean Corpuscular HGB Conc 33.2 g/dl (31.0-36.0); Mean Corpuscular Hemoglobin 29.8 pg (27.0-33.0); Mean Corpuscular Volume 90.0 fL (80.0-98.0); NRBC Abs Auto 0.000 X10*3/uL (0.0-0.012); NRBC Pct Auto 0.0 /100WBC (0.0-0.2); Platelet Count 222 X10*3/uL (160-400); Red Blood Count 4.59 X10*6/uL (4.60-5.80); White Blood Count 5.0 X10*3/uL (4.8-10.8)
[2025-03-02 12:09] LABS: Alanine Aminotransferase 30 U/L (0-40); Albumin Level 4.6 g/dL (3.5-5.0); Alkaline Phosphatase 81 U/L (39-117); Anion Gap 10 (12-20); Aspartate Amino Transferase 30 U/L (5-37); Blood Urea Nitrogen 47 mg/dL (9-16); Calcium 10.3 mg/dL (8.4-10.2); Carbon Dioxide 30 mmol/L (22-29); Chloride 109 mmol/L (96-108); Cholesterol 206 mg/dL (<200); Estimated Glomerular Filt Rate 39; HDL Cholesterol 47 mg/dL (>40); Potassium 3.9 mmol/L (3.3-5.1); Sodium 145 mmol/L (135-145); Total Protein 7.9 g/dL (6.5-8.0); Triglycerides 111 mg/dL (<150)
== END 2025-03-02 08:22 | disposition home or self-care (01) ==
LOC: HO.WFDLDS 08:21
PROVIDERS: Visit Provider Family Medicine
DX: Z00.00 Encounter for general adult medical examination without abnormal findings (principal); N18.31 Chronic kidney disease, stage 3a; E78.00 Pure hypercholesterolemia, unspecified
CPT/HCPCS: 36415; 80053; 80061; 85025

== ENCOUNTER 2025-03-29 14:05 | Outpatient (AMB) | payer OTHER, SELFPAY ==
--- NOTE | 2025-03-29 14:21 | MHC.PC.OV ---
Vital Signs 03/29/25 14:24 Height 5 ft 5 in Weight 132 lb 6 oz BMI 22.0 BP 130/62 Blood Pressure Location Rt brachial Position Sitting Respiration 14 Pulse 90 Pulse Source Pulse Oximeter Temp 97.9 F Temp Source Temporal Artery Scan Pulse Oximetry (%) 98 Oxygen Delivery Method Room Air Intake Visit Reasons: f/u HTN, imaging, chronic conditions Intake Note: Keron presents in the office today for a follow up to hypertension and imaging. Allergies azithromycin Allergy (Intermediate, Verified 03/29/25 14:23) Hives sulfamethoxazole (From Sulfamethoxazole-Trimethoprim) Adverse Reaction (Severe, Verified 03/29/25 14:23) rash trimethoprim (From Sulfamethoxazole-Trimethoprim) Adverse Reaction (Severe, Verified 03/29/25 14:23) rash Medication List - Last Reconciled 03/29/25 by Isaak Grider MD amlodipine 5 mg PO DAILY 90 days losartan-hydrochlorothiazide 100-12.5 mg 1 tab PO DAILY 90 days Tobacco use date assessed: 03/29/25 Fall risk assessment: No Falls in past year Last assessed Fall Risk: 03/29/25 Dental Screening Dental Screen Date: 03/29/25 Did you have a dental visit in the last 12 months?: Yes Did you have a dental problem in the last 6 months where you did not have access to dental care?: No Was dental information given to patient?: Patient has dentist HPI f/u HTN, imaging, chronic conditions HPI Details 79 y/o male presents to f/u HTN, imaging, chronic conditions. Blood pressure today 130/62, 90p. He is on losartan-HCTZ 100-12.5mg daily, amlodipine 5mg daily. Had been having lower abd. pain. Abd CT scan 02/18/25 showed no evidence of nephrolithiasis or ureteral obstruction. Sigmoid diverticulosis w/o evidence of diverticulitis. [facility] Social History (Updated 03/29/25 @ 14:24 by Adela Santana CMA) Housing: House Alcohol intake: current Patient Tobacco Use Status: Never used Tobacco e-Cigarette/Vaping Use: Never Used Second Hand Smoke Exposure: No Use of substances other than those prescribed or required for medical reasons: No service: Yes Current occupational status: retired Cognitive needs: No Hearing needs: No Vision needs: No Questionnaire Thrive Questionnaire Date Thrive assessed: 09/24/24 I am a: Patient What is your living situation today?: I have a steady place to live Within the past 12 months, did the food you bought not last and you didn't have the money to get more?: Never true Within the past 12 months, did you worry whether your food would run out before you got money to buy more?: Never true Do you have trouble paying for medicines?: No Do you have trouble getting transportation to medical appointments?: No Do you have trouble paying your heating and electricity bill?: No Do you have trouble taking care of your child, family member or friend?: No Do you have trouble with day-to-day activities such as bathing, preparing meals, shopping, managing finances, etc.?: No Are you currently unemployed and looking for a job?: No Are you interested in more education?: No Please select the resources that you would like help with: None Currently or been in a relationship where the following occur: No concerns reported THRIVE Score: 0 ADDI-7 AMB Questionnaire ADDI-7 Date ADDI - 7 assessed: 11/22/24 Source: Developed by Drs. Rg Herrera, Stefani Forte, Pankaj Vela and colleagues, with an educational bright from [employer]. Review of Systems Const Denies chills, Denies fatigue, Denies fever(s), Denies headache(s) and Denies weakness ENT Denies dizziness and Denies headache(s) Card Denies dyspnea Resp Denies cough, Denies dyspnea, Denies wheezing and Denies other (shortness of breath) Musc Denies numbness and Denies tingling Neuro Denies dizziness, Denies headache(s), Denies numbness, Denies tingling and Denies weakness Psych Denies anxiety and Denies depression Endo Denies fatigue Aller/Immun Denies wheezing Physical exam (Primary Care) Vital Signs: Last Vital Signs Temp 97.9 F 03/29/25 14:24 Pulse 90 03/29/25 14:24 Resp 14 03/29/25 14:24 BP 130/62 03/29/25 14:24 Pulse Ox 98 03/29/25 14:24 Oxygen Delivery Method Room Air 03/29/25 14:24 BMI result Body Mass Index 22.0 Tobacco/Smoking Status: Tobacco use Status Tobacco use date assessed 03/29/25 03/29/25 14:28 Patient Tobacco Use Status Never used Tobacco 03/29/25 14:24 e-Cigarette/Vaping Use Never Used 03/29/25 14:24 Thrive Assessment: Date of Thrive Assessment Date Thrive assessed 09/24/24 03/29/25 14:23 Currently or been in a relationship where the following occur: No concerns reported Const General: well developed; No acute distress Nutritional Appearance: well nourished Orientation/consciousness: patient oriented x3 HENMT Head: Yes normocephalic and Yes atraumatic Eyes General: appearance normal, both eyes and all related structures Pupils: Equal, round and reactive pupils present EOM: EOMs intact bilaterally Resp Effort & Inspection: normal respiratory effort Auscultation: clear to auscultation bilaterally Cardio Rate: regular rate Rhythm: regular rhythm Heart sounds: S1 normal heart sound present, S2 normal heart sound present, no gallops, no murmurs and no rubs Neuro General: patient oriented x3 and gait normal Cranial nerves: Yes Equal, round and reactive pupils present Psych Affect: normal affect Coding Level of Care Code Est Pt Level 4 (69520) Diagnoses Primary hypertension I10 Hypertension type: primary hypertension Stage 3a chronic kidney disease N18.31 Chronic kidney disease stage 3 subtype: stage 3a (GFR 45-59) Lower abdominal pain R10.30 Assessment & Plan Assessment & Plan (1) Hypertension: Code(s): I10 - Essential (primary) hypertension Category: Medical Qualifiers: Hypertension type: primary hypertension Qualified Code(s): I10 - Essential (primary) hypertension Plan: Blood pressure is controlled. Goal is less than 140/90 Continue current medications (2) CKD (chronic kidney disease) stage 3, GFR 30-59 ml/min: Code(s): N18.30 - Chronic kidney disease, stage 3 unspecified Category: Medical Qualifiers: Chronic kidney disease stage 3 subtype: stage 3a (GFR 45-59) Qualified Code(s): N18.31 - Chronic kidney disease, stage 3a Plan: Creatinine level had risen with increase in hydrochlorothiazide. Returned hydrochlorothiazide to prior dosing He will get his blood drawn to recheck renal function (3) Lower abdominal pain: Code(s): R10.30 - Lower abdominal pain, unspecified Category: Medical Plan: Improving with good hydration X-ray did not show any acute findings Did show some diverticulosis but no diverticulitis Continue good hydration. Consider soluble fiber Orders: Orders Basic Metabolic Panel Today N18.31 - Chronic kidney disease, stage 3a, Z00.00 - Encounter for general adult medical examination without abnormal findings
[2025-03-29 14:24] VITALS: BP 130/62; PULSE 90; RESP 14; TEMP 36.6; O2SAT 98; BMI 22.0
== END 2025-03-29 14:57 | disposition home or self-care (01) ==
LOC: HO.HMCFM 14:06
PROVIDERS: PCP Family Medicine; Visit Provider Family Medicine
DX: I10 Essential (primary) hypertension (principal); N18.31 Chronic kidney disease, stage 3a; R10.30 Lower abdominal pain, unspecified

== ENCOUNTER 2025-05-02 08:18 | Outpatient (REF) | payer OTHER, SELFPAY ==
[2025-05-02 11:40] LABS: Anion Gap 14 (12-20); Blood Urea Nitrogen 25 mg/dL (9-16); Calcium 10.3 mg/dL (8.4-10.2); Carbon Dioxide 25 mmol/L (22-29); Chloride 106 mmol/L (96-108); Estimated Glomerular Filt Rate 44; Potassium 4.9 mmol/L (3.3-5.1); Sodium 140 mmol/L (135-145)
== END 2025-05-02 08:19 | disposition home or self-care (01) ==
LOC: HO.WFDLDS 08:18
PROVIDERS: Visit Provider Family Medicine
DX: Z00.00 Encounter for general adult medical examination without abnormal findings (principal); N18.31 Chronic kidney disease, stage 3a
CPT/HCPCS: 36415; 80048